=== PATIENT | female | born 1995 | race Two or more races ===

== ENCOUNTER 2023-01-11 16:10 | Outpatient (CLI) | payer OTHER | END 2023-01-11 17:13 | disposition home or self-care (01) | LOC: PRENATAL 16:10 | PROVIDERS: ATTEND Obstetrics & Gynecology Maternal & Fetal Medicine | DX: O36.80X0 Pregnancy with inconclusive fetal viability, not applicable or unspecified (principal); Z36.9 Encounter for antenatal screening, unspecified; Z36.82 Encounter for antenatal screening for nuchal translucency; Z3A.14 14 weeks gestation of pregnancy ==

== ENCOUNTER 2023-02-17 08:17 | Outpatient (CLI) | payer OTHER | END 2023-02-17 08:18 | disposition home or self-care (01) | LOC: PRENATAL 08:17 | PROVIDERS: ATTEND Obstetrics & Gynecology Maternal & Fetal Medicine | DX: O35.3XX0 Maternal care for (suspected) damage to fetus from viral disease in mother, not applicable or unspecified (principal); O44.00 Complete placenta previa NOS or without hemorrhage, unspecified trimester; Z3A.19 19 weeks gestation of pregnancy ==

== ENCOUNTER 2023-05-21 11:42 | Outpatient (CLI) | payer OTHER | END 2023-05-21 11:43 | disposition home or self-care (01) | LOC: PRENATAL 11:42 | PROVIDERS: ATTEND Obstetrics & Gynecology Maternal & Fetal Medicine | DX: O26.849 Uterine size-date discrepancy, unspecified trimester (principal); O36.8199 Decreased fetal movements, unspecified trimester, other fetus; Z3A.32 32 weeks gestation of pregnancy ==

== ENCOUNTER 2023-07-02 14:45 | Inpatient (IN) | payer OTHER ==
[~2023-07-02] VITALS: Ht 154.9 cm; Wt 3.6 kg
[2023-07-06 08:42] LABS: HEMATOCRIT 31.9 % (36.0-45.00); MEAN CELL VOLUME 87.9 fL (80.00-100.00); MEAN CORPUSCULAR HEMOGLOBIN 30.2 pg (27.00-32.0); MEAN CORPUSCULAR HGB CONC 34.4 g/dl (32.0-36.0); PLATELET COUNT 209 K/uL (150-450); RED BLOOD COUNT 3.64 M/uL (4.00-6.00); RED CELL DISTRIBUTION WIDTH 14.3 % (11.5-14.5)
[2023-07-06] MEDS ORDERED: RINGERS SOLUTION,LACTATED 1,000 ML IV SCH (08:45)
[2023-07-06] MEDS ORDERED: MISOPROSTOL 25 MCG/4 ML GEL.W.APPL VAG ONE ×3 (08:45→18:00)
[2023-07-06 08:48] LABS: URINE APPEARANCE Turbid; URINE BILIRRUBIN Negative (NEGATIVE); URINE BLOOD Negative; URINE COLOR Yellow; URINE GLUCOSE Negative (NEGATIVE); URINE LEUKOCYTE Large; URINE NITRATE Negative; URINE PROTEIN Negative (NEGATIVE)
[2023-07-06 08:52] LABS: URINE BACTERIA 1794.1 uL (0.0-1933); URINE EPITHELIAL CELLS 42.5 uL (0.0-38.8); URINE RBC 3.1 uL (0.0-20.8); URINE WBC 106.6 uL (0.0-23.2)
[2023-07-06 09:07] LABS: ALBUMIN 2.6 gm/dL (3.4-5.0); BILIRUBIN TOTAL 0.34 mg/dL (0.3-1.2); CALCIUM 8.7 mg/dL (8.5-10.1); CREATININE SERUM 0.82 mg/dL (0.55-1.02); GFR 83.62; GLOBULINA 3.7 G/DL (2.4-3.5); POTASSIUM 4.19 mEq/L (3.5-5.1); TOTAL PROTEIN 6.3 gm/dL (6.4-8.2)
[2023-07-06 09:09] LABS: URINE YEAST MODERATE /hpf
[2023-07-06 09:21] LABS: INR < 0.93; PARTIAL THROMBOPLASTIN TIME 29.2 SECONDS (22.0-34.0)
[2023-07-06 09:29] LABS: PROTHROMBIN TIME 9.2 SECONDS (9.0-11.5)
[2023-07-06] MEDS ORDERED: AMPICILLIN SODIUM 2,000 MG VIAL ONE (19:33)
[2023-07-06] MEDS ORDERED: AMPICILLIN SODIUM 2,000 MG VIAL IV STA (19:41)
[2023-07-07] MEDS ORDERED: AMPICILLIN SODIUM 1,000 MG VIAL IV SCH
[2023-07-07] MEDS ORDERED: MORPHINE SULFATE 4 MG/ML VIAL IV ONE (03:15)
[2023-07-07] MEDS ORDERED: ERYTHROMYCIN BASE 3.5 GM OINT...G. OP ONE (10:11)
[2023-07-07] MEDS ORDERED: OXYTOCIN 10 UNITS/ML VIAL ONE (10:11)
[2023-07-07] MEDS ORDERED: MEPERIDINE HCL/PF 50 MG/ML VIAL IM PRN (12:00)
[2023-07-07] MEDS ORDERED: PROMETHAZINE HCL 50 MG/ML AMPUL IM PRN (12:00)
[2023-07-07] MEDS ORDERED: OXYTOCIN 10 UNITS/ML VIAL IV ONE (12:15)
[2023-07-07] MEDS ORDERED: ERYTHROMYCIN BASE 1 GM TUBE OP ONE (12:15)
[2023-07-07 12:31] LABS: ABG PH 7.271 (7.35-7.45); ABG PO2 17.9 mmHg (80-100); SaO2 19.5 %
[2023-07-07 12:32] LABS: BASE EXCESS -5.5 mmol/l; BICARBONATE 21.6 mmol/l (23-25); Tco2 23.1 mmol/l; o2 21 %
[2023-07-07] MEDS ORDERED: AMPICILLIN SODIUM 1,000 MG VIAL ONE (14:21)
[2023-07-07 17:24] LABS: HEMATOCRIT 29.8 % (36.0-45.00); HEMOGLOBIN 10.2 g/dL (12.0-15.00); MEAN CELL VOLUME 88.9 fL (80.00-100.00); MEAN CORPUSCULAR HEMOGLOBIN 30.5 pg (27.00-32.0); MEAN CORPUSCULAR HGB CONC 34.3 g/dl (32.0-36.0); PLATELET COUNT 176 K/uL (150-450); RED BLOOD COUNT 3.35 M/uL (4.00-6.00); RED CELL DISTRIBUTION WIDTH 13.9 % (11.5-14.5)
[2023-07-08] MEDS ORDERED: OxyCODONE HCL/APAP UD (PERCOCET) PO PRN (08:00)
[2023-07-08] MEDS ORDERED: PNV,CALCIUM 72/IRON/FOLIC ACID 1 TAB TABLET PO SCH (09:00)
[2023-07-08] MEDS ORDERED: SIMETHICONE 125 MG CAPSULE PO SCH (09:00)
[2023-07-08] MEDS ORDERED: DOCUSATE SODIUM 100MG CAP PO SCH (09:00)
== END 2023-07-09 16:33 | disposition home or self-care (01) | DRG 788 ==
LOC: LDR 07-06 07:41 → OB/GYN 07-06 07:41 → O/R 07-07 10:41 → OB/GYN 07-07 12:31 → LDR 07-12 14:45
PROVIDERS: ADMIT Obstetrics & Gynecology; ATTEND Obstetrics & Gynecology
PROC: 4A1HXCZ Monitoring of Products of Conception, Cardiac Rate, External Approach (ICD-10-PCS; 2023-07-06)
PROC: 3E0P7VZ Introduction of Hormone into Female Reproductive, Via Natural or Artificial Opening (ICD-10-PCS; 2023-07-06)
PROC: 3E033VJ Introduction of Other Hormone into Peripheral Vein, Percutaneous Approach (ICD-10-PCS; 2023-07-07)
PROC: 10D00Z1 Extraction of Products of Conception, Low, Open Approach (ICD-10-PCS; principal; 2023-07-07 10:00)
DX: O62.0 Primary inadequate contractions (principal); O42.02 Full-term premature rupture of membranes, onset of labor within 24 hours of rupture; Z3A.39 39 weeks gestation of pregnancy; Z37.0 Single live birth; Z20.822 Contact with and (suspected) exposure to COVID-19